=== PATIENT | male | born 1945 | race Caucasian/White ===

== ENCOUNTER → 2017-02-06 | Outpatient (CLI) | payer MEDICARE, BC ==
--- NOTE | 2017-02-06 12:28 | RADIOLOGY REPORT (SQ) ---
EXAM DESCRIPTION: CAROTID DOPPLER COMPLETED DATE/TIME: 02/06/2017 12:00 pm REASON FOR STUDY: DIZZINESS I77.9 I77.9 DISORDER OF ARTERIES AND ARTERIOLES, UNSPECIFIED COMPARISON: None. TECHNIQUE: Grayscale ultrasound, Doppler velocity and spectra, and color Doppler images acquired of the extra-cranial carotid and vertebral arteries. Images stored on PACS. LIMITATIONS: None. FINDINGS: RIGHT CAROTID CCA Velocities: Within normal limits. ICA Velocities Peak systolic 1.56 m/s. End diastolic 0.51 m/s. Proximal ICA/CCA peak systolic ratio 1.3. There is mixed calcific and noncalcific plaque at the right proximal internal carotid artery. Veloci ties suggest 50 to 69% diameter narrowing. Direct vessel diameter measurement suggests 54% diameter narrowing. Right external carotid artery is patent. LEFT CAROTID CCA Velocities: Within normal limits. ICA Velocities Peak systolic 0.69 m/s. End diastolic 0.24 m/s. Proximal ICA/CCA peak systolic ratio 0.9. Heavy calcific and noncalcific plaque is present at the left carotid bifurcation. The left proximal internal carotid artery has the appearance of recannalized thrombus, with an irregularly shaped diffu sely narrowed tortuous lumen. Hypoechoic clot or plaque in the proximal left ICA is present. Turbul ent flow. Suspect high-grade proximal left ICA stenosis at the shadowing plaque. This finding was d iscussed with Dr. Pascual. CT angio of the carotid bifurcations is recommended for followup. Left external carotid artery is patent. VERTEBRAL ARTERIES: Antegrade flow. Normal waveforms. SUBCLAVIAN ARTERIES: Not examined OTHER: No other significant finding. 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 Very narrowed, irregular tiny lumen proximal left ICA at the bifurcation, worrisome for recannulized occlusion or severe stenosis from soft plaque. This finding was discussed with Dr. Pascual. CT ang io of the carotid bifurcations is recommended. COMMENT: Quality ID #[id number]: Velocity criteria are extrapolated from the diameter data as defined by t he Society of Radiologists in Ultrasound Consensus Conference. Radiology 2003: 229; 340-346. TECHNICAL DOCUMENTATION: JOB ID: [id number] [employer]- All Rights Reserved
== END ==
LOC: LAB 10:49
PROVIDERS: ATTEND Family Medicine
DX: I77.9 Disorder of arteries and arterioles, unspecified (principal); I65.23 Occlusion and stenosis of bilateral carotid arteries
CPT/HCPCS: 93880

== ENCOUNTER → 2019-11-04 | Outpatient (CLI) | payer MEDICARE, BC ==
--- NOTE | 2019-11-04 12:10 | RADIOLOGY REPORT (SQ) ---
EXAM DESCRIPTION: MRI RT LOWER JOINT WITHOUT IMAGES COMPLETED DATE/TIME: 11/04/2019 8:01 am REASON FOR STUDY: RT KNEE PAIN M25.561 PAIN IN RIGHT KNEE COMPARISON: 11/06/2015 TECHNIQUE: Rightknee images acquired and stored on PACS. Multiplanar images include fat sensitive s equences as T1, water sensitive sequences as FST2 or STIR, cartilage sensitive sequences as FSPD, and gradient echo sequences. LIMITATIONS: None. FINDINGS: JOINT AND BURSAE: A simple appearing joint effusion is present. BONE CORTEX AND MARROW: Mild marrow edema is seen of the lateral tibial plateau and lateral femoral c ondyles. No infiltrative process. ACL: Intact. No degeneration or ganglion cyst. PCL: Intact. MCL: Intact. No periligamentous edema or fluid. LCL: Intact. No periligamentous edema or fluid. MEDIAL MENISCUS: There is an inferiorly surfacing longitudinal oblique tear of the posterior horn. LATERAL MENISCUS: The anterior horn appears macerated. There is a complex tear of the body. MEDIAL COMPARTMENT: Cartilage preserved. No bone bruises or reactive marrow edema. No osteophytes. LATERAL COMPARTMENT: Full-thickness cartilaginous defects are seen of the weight-bearing surface of t he lateral femoral condyles as well as the apposing lateral tibial plateau. No subcortical cystic ch anges. Irregular thinning and fissuring is seen of the remaining lateral compartment cartilage. PATELLA: No chondromalacia. No subchondral cysts. Medial and lateral retinacula intact. EXTENSOR MECHANISM: Intact. Quadriceps and patella tendons normal. SOFT TISSUES: Adjacent muscles and subcutaneous tissues normal. Normal flow void in popliteal artery and vein. OTHER: No other significant finding. IMPRESSION: 1. 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 2. Incidental note is made of an inferiorly surfacing longitudinal oblique tear of the posterior hor n of the medial meniscus TECHNICAL DOCUMENTATION: JOB ID: [id number] 2010 [employer]- All Rights Reserved Reading location - IP/workstation name: [email or web address]
== END ==
LOC: RAD 11-02 08:05
PROVIDERS: ATTEND Orthopaedic Surgery
DX: S83.241A Other tear of medial meniscus, current injury, right knee, initial encounter (principal); S83.281A Other tear of lateral meniscus, current injury, right knee, initial encounter; X58.XXXA Exposure to other specified factors, initial encounter; M94.261 Chondromalacia, right knee; M25.461 Effusion, right knee